=== PATIENT | male | born 1965 | race Caucasian/White ===

== ENCOUNTER 2017-04-23 12:00 | Emergency (ER) | payer BC ==
[~2017-04-23] VITALS: Ht 175.3 cm; Wt 90.0 kg
[2017-04-23 12:06] VITALS: Ht 175.3 cm; Wt 90.0 kg
[2017-04-23] MEDS ORDERED: SOD CHLORIDE 0.9% 1,000 ML IV STA (12:11)
[2017-04-23 12:30] LABS: ADD SCAN DIFF NO
[2017-04-23 12:32] LABS: BASOPHIL # 0.1 10^3/ul (0.0-0.1); BASOPHILS % 1.4 % (0.0-2.0); EOSINOPHILS # 0.2 10^3/ul (0.0-0.5); EOSINOPHILS % 4.5 % (0.0-7.0); HEMATOCRIT 44.1 % (42.0-52.0); HEMOGLOBIN 15.7 g/dl (14.0-18.0); LYMPHOCYTES # 1.3 10^3/ul (0.8-2.9); LYMPHOCYTES % 30.1 % (15.0-51.0); MEAN CORPUSCULAR HEMOGLOBIN 31.8 pg (29.0-33.0); MEAN CORPUSCULAR HGB CONC 35.6 g/dl (32.0-37.0); MEAN CORPUSCULAR VOLUME 89.5 fl (82.0-101.0); MEAN PLATELET VOLUME 10.1 fl (7.4-10.4); MONOCYTE # 0.3 10^3/ul (0.3-0.9); MONOCYTES % 6.1 % (0.0-11.0); NEUTROPHIL # 2.4 10^3/ul (1.6-7.5); NEUTROPHILS % 56.5 % (39.0-77.0); PLATELET COUNT 263 10^3/UL (140-415); RED BLOOD COUNT 4.93 10^6/ul (4.70-6.10); RED CELL DISTRIBUTION WIDTH 12.4 % (11.5-14.5); WHITE BLOOD COUNT 4.3 10^3/ul (4.8-10.8)
[2017-04-23] MEDS ORDERED: ALLO300T2 PO (12:32)
[2017-04-23] MEDS ORDERED: LOSA100T7 PO (12:32)
[2017-04-23 12:48] LABS: INR 0.88; PROTIME 11.9 Sec (12.2-14.2); PT RATIO 0.9
[2017-04-23 12:49] LABS: ANION GAP 14 (8-16); BLOOD UREA NITROGEN 17 mg/dl (7-20); CARBON DIOXIDE 24 mmol/L (21-31); CHLORIDE 104 mmol/L (97-110); CREATININE 1.04 mg/dl (0.61-1.24); GLUCOSE 136 mg/dl (70-220); PARTIAL THROMBOPLASTIN TIME 27.1 Sec (25.0-35.0); POTASSIUM 3.7 mmol/L (3.5-5.1); SODIUM 138 mmol/L (135-144)
[2017-04-23 12:51] LABS: D-DIMER 358.06 ng/ml (<460)
[2017-04-23 13:09] LABS: TROPONIN-I < 0.012 ng/ml (0.00-0.12)
--- NOTE | 2017-04-23 13:18 | RADRPT ---
PROCEDURE: Chest Radiograph. CLINICAL INDICATION: Chest pain TECHNIQUE: Single frontal chest radiograph. COMPARISON: None available FINDINGS: The cardiomediastinal silhouette is within normal limits. No infiltrate or effusion is seen. Th e bones are intact. IMPRESSION: 1. Unremarkable chest radiograph. RPTAT: KK .Eldon Gonzalez MD, MD Date Time Electronically viewed and signed by .Eldon Gonzalez MD, on 04/23/2017 13:17 .B/
--- NOTE | 2017-04-23 14:49 | ERD ---
ER Documentation Chief Complaint Date/Time DATE: 04/23/17 TIME: 14:45 Chief Complaint BIB RA FOR EVAL OF CP TODAY. HPI This is a 61-year-old male who presents to the emergency room for evaluation of chest pain. Patient states that he was driving his car and started to have some centralized chest pain with no radiation. He states he felt his heart beating fast and he started to breathe quickly and noticed that his hands became numb. He states that he then called 911 and was transferred to the emergency room for further evaluation. The patient does state that he has a history of hypertension however denies being a smoker, any family history of cardiac disease, diabetes, or hyperlipidemia. He denies any drug use or alcohol use today ROS All systems reviewed and are negative except as per history of present illness. Medications Home Meds Reported Medications Allopurinol* (Allopurinol*) 300 Mg Tablet, 300 MG PO DAILY, TAB 04/23/17 Losartan Potassium* (Losartan Potassium*) 100 Mg Tablet, 100 MG PO DAILY, TAB 04/23/17 Allergies Allergies: Coded Allergies: Penicillins (Unverified Allergy, Unknown, SWELLING RASH, 04/23/17) PMhx/Soc Hx Cardiac Disorders: Yes (HTN) Hx Alcohol Use: Yes (OCCASIONAL ) Hx Substance Use: No Hx Tobacco Use: No Smoking Status: Former smoker Physical Exam Vitals Vital Signs Date Time Temp Pulse Resp B/P Pulse Ox O2 Delivery O2 Flow Rate FiO2 04/23/17 14:22 98.9 64 16 113/56 100 Room Air 04/23/17 12:08 99.9 119 18 154/111 99 Room Air 04/23/17 12:06 99.9 122 19 154/111 99 Physical Exam INITIAL VITAL SIGNS: Reviewed by me GENERAL: The patient is well developed and appropriate for usual state of health in no apparent distress HEENT: Pupils equal, round, and reactive to light. EOMI. There is no scleral icterus. NECK: C-spine is soft and supple, there is no meningismus. There is no cervical lymphadenopathy. LUNGS: Clear to auscultation bilaterally. There are no rales, wheezes or rhonchi. HEART: Tachycardic, no murmurs, clicks, rubs or gallops. ABDOMEN: Soft, non-tender, non-distended. There are bowel sounds in all four quadrants. No rebound or guarding. EXTREMITIES: There is no peripheral cyanosis or edema. No focal swelling or erythema. NEUROLOGICAL: The patient moves all four extremities with 5/5 strength. Cranial nerves II - XII are intact. Normal gait. Alert and oriented SKIN: There is no apparent rash or petechiae. HEME/LYMPHATIC: There is no evidence of excessive bruising or lymphedema. PSYCHIATRIC: The patient does not appear anxious or depressed. Result Diagram: 04/23/17 1220 04/23/17 1220 Results 24 hrs Laboratory Tests Test 04/23/17 12:20 04/23/17 13:30 White Blood Count 4.310^3/ul Red Blood Count 4.9310^6/ul Hemoglobin 15.7g/dl Hematocrit 44.1% Mean Corpuscular Volume 89.5fl Mean Corpuscular Hemoglobin 31.8pg Mean Corpuscular Hemoglobin Concent 35.6g/dl Red Cell Distribution Width 12.4% Platelet Count 00154^3/UL Mean Platelet Volume 10.1fl Neutrophils % 56.5% Lymphocytes % 30.1% Monocytes % 6.1% Eosinophils % 4.5% Basophils % 1.4% Nucleated Red Blood Cells % 0.0/100WBC Neutrophils # 2.410^3/ul Lymphocytes # 1.310^3/ul Monocytes # 0.310^3/ul Eosinophils # 0.210^3/ul Basophils # 0.110^3/ul Nucleated Red Blood Cells # 0.010^3/ul Prothrombin Time 11.9Sec Prothrombin Time Ratio 0.9 INR International Normalized Ratio 0.88 Activated Partial Thromboplast Time 27.1Sec D-Dimer 358.06ng/ml D-Dimer Comment Sodium Level 138mmol/L Potassium Level 3.7mmol/L Chloride Level 104mmol/L Carbon Dioxide Level 24mmol/L Anion Gap 14 Blood Urea Nitrogen 17mg/dl Creatinine 1.04mg/dl Glucose Level 136mg/dl Calcium Level 10.0mg/dl Troponin I < 0.012ng/ml Free Thyroxine 1.02ng/dl Free Triiodothyronine (T3) pg/mL 4.38pg/ml Current Medications Medications (Trade) Dose Ordered Sig/Vangie Route PRN Reason Start Time Stop Time Status Last Admin Dose Admin Sodium Chloride (NS) 1,000 ml @ 1,000 mls/hr Q1H STAT IV 04/23/17 12:11 04/23/17 13:10 DC 04/23/17 13:09 Procedures/MDM EKG: Rate/Rhythm: Sinus tachycardia QRS, ST, T-waves: [No changes consistent w/ acute ischemia] Impression: [No evidence of ischemia or arrhythmia] Chest X-ray 1V Interpreted by me: Soft Tissue: No acute abnormalities Bones: No acute abnormalities Mediastinum/Cardiac Silhouette/Lungs: [No acute abnormalities] This 51-year-old male presents to the emergency room for evaluation of chest pain and palpitations. When I evaluated this patient he was tachycardic. The patient was not hypoxic, and in no respiratory distress. He was hemodynamically stable. I did obtain a cardiac workup including a troponin which is negative. This patient also had a d-dimer drawn which was also within normal limits. This patient did have sinus tachycardia on EKG with no signs of ST elevations. His heart rate was 120 bpm. According to the patient's he does get intermittent night sweats. I did send off a thyroid panel including a free T3 and T4 and free T3 and T4 levels are normal. This patient's heart rate is now 64 bpm and his oxygen is 100% on room air. My suspicion for acute coronary syndrome is low at this time however I did advise the patient on the importance of follow-up with his primary care physician for referral for cardiology for outpatient stress test. The patient and his are comfortable with the plan of care at discharge at this time. I advised him to return to the emergency room at any time for reevaluation if this patient were to develop any palpitations or increased chest pain. The patient is chest pain- free at this time. Departure Diagnosis: Primary Impression: Chest pain Additional Impression: Heart palpitations Condition: Stable CIRILO MARIE DO Apr 23, 2017 14:48
[2017-04-23 15:01] VITALS: BP 156/98; PULSE 71; RESP 16; TEMP 98.2
== END 2017-04-23 16:16 | disposition home or self-care (01) ==
LOC: E/R 12:00
DX: R07.9 Chest pain, unspecified (principal); R00.2 Palpitations; I10 Essential (primary) hypertension; Z87.891 Personal history of nicotine dependence
CPT/HCPCS: 71010; 80048; 84439; 84443; 84481; 84484; 85025; 85378; 85610; 85730; 93005; J7030